=== PATIENT | female | born 1955 | race Caucasian/White ===

== ENCOUNTER 2017-02-06 12:11 | Day surgery (SDC) | payer MEDICARE ==
[~2017-02-06 12:11] MED LIST: DIPRIVAN 200 MG/20 ML IV ONE; Kenalog-40 IM ONE; Lactated Ringers 1,000 ML IV ONE; Sensorcaine 0.25% 10 ML IJ ONE
--- NOTE | 2017-02-06 16:38 | XRAY ---
Indication: Right L2-L5 MBB. Intraoperative fluoroscopy was provided for 17 seconds. Single digital spot image submitted for interpretation demonstrates posterior spinal needles with the tips projecting over the expected course of the right L2-L5 nerve roots. Correlate with intraoperative findings/report. Partially visualized 2 spinal stimulator leads.
--- NOTE | 2017-02-06 17:01 | XRAY ---
17 seconds fluoroscopy time in surgery for right L2-5 MBB.
== END 2017-02-06 15:45 | disposition home or self-care (01) ==
LOC: SDC-PAIN 12:11
PROVIDERS: ATTEND Pain Medicine Interventional Pain Medicine
DX: M47.816 Spondylosis without myelopathy or radiculopathy, lumbar region (principal); M54.16 Radiculopathy, lumbar region; M51.26 Other intervertebral disc displacement, lumbar region; E11.40 Type 2 diabetes mellitus with diabetic neuropathy, unspecified; Z79.891 Long term (current) use of opiate analgesic
CPT/HCPCS: 64493; 64494; 64495; 72020; 77003; J2704; J3301